=== PATIENT | male | born 2005 | race Caucasian/White ===

== ENCOUNTER 2024-03-18 00:21 | Emergency (ER) | payer OTHER ==
[~2024-03-18] VITALS: Ht 180.3 cm; Wt 77.3 kg
[2024-03-18 00:35] VITALS: TEMP 98.1
[2024-03-18 01:30] VITALS: BP 122/67; PULSE 63
== END 2024-03-18 01:30 | disposition home or self-care (01) ==
LOC: COL.ER 00:21
DX: S06.0XAA Concussion with loss of consciousness status unknown, initial encounter (principal); V86.05XA Driver of 3- or 4- wheeled all-terrain vehicle (ATV) injured in traffic accident, initial encounter; Y92.410 Unspecified street and highway as the place of occurrence of the external cause